=== PATIENT | male | born 1985 | race African-American/Black ===

== ENCOUNTER 2020-07-06 11:10 | Emergency (ER) | payer OTHER ==
[~2020-07-06] VITALS: Ht 180.3 cm; Wt 97.7 kg
[2020-07-06 11:34] VITALS: BP 130/70
[2020-07-06] MEDS ORDERED: MOTRIN800 MG PO (13:29)
[2020-07-06] MEDS ORDERED: ZPAK PO (13:29)
== END 2020-07-06 14:57 | disposition home or self-care (01) | DRG 153 ==
LOC: ED 11:10
DX: J02.9 Acute pharyngitis, unspecified (principal); S16.1XXA Strain of muscle, fascia and tendon at neck level, initial encounter; F17.210 Nicotine dependence, cigarettes, uncomplicated; X50.0XXA Overexertion from strenuous movement or load, initial encounter; Y99.0 Civilian activity done for income or pay; Z20.822 Contact with and (suspected) exposure to COVID-19